=== PATIENT | male | born 1950 | race Caucasian/White ===

== ENCOUNTER → 2018-04-06 | Outpatient (CLI) | payer MEDICARE, OTHER ==
--- NOTE | 2018-04-06 11:33 | RAD ---
EXAM: Right lower extremity venous Doppler sonogram. HISTORY: Swelling and pain. TECHNIQUE: Garcia scale and color Doppler sonographic evaluation of the right lower extremity veins with spectral waveform analysis was performed. FINDINGS: There is normal color flow, normal compressibility and there are normal spectral waveforms in the common femoral, superficial femoral, popliteal, posterior tibial and greater saphenous veins. There is a hematoma within the medial calf soft tissues measuring 5.7 x 4.5 x 0.9 cm per IMPRESSION: 1. No Doppler evidence of lower extremity deep venous thrombosis. 2. Medial right calf soft tissue hematoma measuring 5.7 cm. Electronically signed by: Vale Lake MD (04/06/2018 11:29 AM) [facility]
== END | disposition home or self-care (01) ==
LOC: US 10:30
PROVIDERS: ATTEND Physician Assistant
DX: M79.81 Nontraumatic hematoma of soft tissue (principal)
CPT/HCPCS: 93971

== ENCOUNTER 2021-05-19 10:50 | Emergency (ER) | payer MEDICARE, OTHER ==
[~2021-05-19] VITALS: Ht 175.3 cm; Wt 90.1 kg
[2021-05-19] MEDS ORDERED: DEXAMETHASONE SOD PHOS 10 MG/ML VIAL. IV ONE (11:30)
[2021-05-19 11:58] LABS: CALCIUM 11.4 mg/dL (8.5-10.1); CREATININE 2.6 mg/dL (0.7-1.3); GFR 24.5; POTASSIUM 4.2 mmol/L (3.5-5.1)
[2021-05-19 12:01] LABS: BASO % 0 % (0-3); EOS % 0 % (0-3); HEMATOCRIT 46.5 % (39.0-53.0); HEMOGLOBIN 15.6 g/dL (13.0-17.5); LYMPH # 0.7 x10^3/uL (1.0-4.8); LYMPH % 3 % (24-48); MEAN CORPUSCULAR HEMOGLOBIN 30 pg (25-35); MEAN CORPUSCULAR HGB CONC 34 g/dL (31-37); MEAN CORPUSCULAR VOLUME 90 fL (79-100); MONO # 2.7 x10^3/uL (0.0-1.1); MONO % 10 % (0-9); NEUT # 24.6 x10^3uL (1.8-7.7); NEUT % 88 % (31-73); PLATELET COUNT 325 x10^3/uL (140-400); RED BLOOD COUNT 5.18 x10^6/uL (4.30-5.70); RED CELL DISTRIBUTION WIDTH 14.9 % (11.5-14.5); WHITE BLOOD COUNT 28.1 x10^3/uL (4.0-11.0)
--- NOTE | 2021-05-19 12:07 | PHYS DOC ---
Past History Past Medical History: A-Fib, COPD, Hypertension (ALEXUS STRAUSS PUBLIC HEALTH NUTRITIONIST) Adult General Chief Complaint Chief Complaint: MULTIPLE COMPLAINTS HPI HPI Patient is a 71-year-old male patient with history of COPD, hypertension, who presents to the ED today with multiple complaints. Patient is complaining of having from that began on Thursday 3 days ago. Patient states symptoms are worse on exertion. He states he has tried using his breathing treatments at home with minimal relief. Patient denies any fever. He also reports coughing. Patient is also complaining of his abdomen being distended specifically on the left side, he states he noted this distention since Thursday. Reports mild pain to the LUQ and RLQ with nausea, and vomiting yesterday. Patient is also complaining of a mass in his right groin that he noted this morning. Denies any injuries. (ALEXUS STRAUSS PUBLIC HEALTH NUTRITIONIST) Review of Systems Review of Systems Constitutional: Denies fever or chills [] Eyes: Denies change in visual acuity, redness, or eye pain [] HENT: Denies nasal congestion or sore throat [] Respiratory: Reports cough and shortness of breath [] Cardiovascular: No additional information not addressed in HPI [] GI: reports abdominal distention, and groin mass, denies abdominal pain, nausea, vomiting, bloody stools or diarrhea [] : Denies dysuria or hematuria [] Musculoskeletal: Denies back pain or joint pain [] Integument: Denies rash or skin lesions [] Neurologic: Denies headache, focal weakness or sensory changes [] All other systems were reviewed and found to be within normal limits, except as documented in this note. (ALEXUS STRAUSS PUBLIC HEALTH NUTRITIONIST) Current Medications Current Medications Current Medications Medications (Trade) Dose Ordered Sig/Jie Start Time Stop Time Status Last Admin Dose Admin Dexamethasone Sodium Phosphate (Decadron) 10 mg 1X ONCE 05/19/21 11:30 05/19/21 11:31 UNV Sodium Chloride (Normal Saline Flush) 10 ml QSHIFT PRN 05/19/21 11:30 UNV (ALEXUS STRAUSS PUBLIC HEALTH NUTRITIONIST) Physical Exam Physical Exam Constitutional: Well developed, well nourished, no acute distress, non-toxic appearance. [] HENT: Normocephalic, atraumatic, bilateral external ears normal, oropharynx moist, no oral exudates, nose normal. [] Eyes: PERRLA, EOMI, conjunctiva normal, no discharge. [] Neck: Normal range of motion, no tenderness, supple, no stridor. [] Cardiovascular:Heart rate regular rhythm, no murmur [] Lungs & Thorax: Diminished breath sounds Abdomen: Rounded abdomen distended abdomen with tenderness to the LUQ. Bowel sounds normal, soft, no pulsatile masses. [] Large right inguinal hernia noted. Unable to reduce it Skin: Warm, dry, no erythema, no rash. [] Back: No tenderness, no CVA tenderness. [] Extremities: No tenderness, no cyanosis, no clubbing, ROM intact, no edema. [] Neurologic: Alert and oriented X 3, normal motor function, normal sensory function, no focal deficits noted. [] Psychologic: Affect normal, judgement normal, mood normal. [] (ALEXUS STRAUSS APRN) Current Patient Data Lab Results Laboratory Tests Test 05/19/21 11:22 White Blood Count 28.1 x10^3/uL (4.0-11.0) H Red Blood Count 5.18 x10^6/uL (4.30-5.70) Hemoglobin 15.6 g/dL (13.0-17.5) Hematocrit 46.5 % (39.0-53.0) Mean Corpuscular Volume 90 fL (79-100) Mean Corpuscular Hemoglobin 30 pg (25-35) Mean Corpuscular Hemoglobin Concent 34 g/dL (31-37) Red Cell Distribution Width 14.9 % (11.5-14.5) H Platelet Count 325 x10^3/uL (140-400) Neutrophils (%) (Auto) 88 % (31-73) H Lymphocytes (%) (Auto) 3 % (24-48) L Monocytes (%) (Auto) 10 % (0-9) H Eosinophils (%) (Auto) 0 % (0-3) Basophils (%) (Auto) 0 % (0-3) Neutrophils # (Auto) 24.6 x10^3uL (1.8-7.7) H Lymphocytes # (Auto) 0.7 x10^3/uL (1.0-4.8) L Monocytes # (Auto) 2.7 x10^3/uL (0.0-1.1) H Eosinophils # (Auto) 0.0 x10^3/uL (0.0-0.7) Basophils # (Auto) 0.0 x10^3/uL (0.0-0.2) Platelet Estimate Pending (ALEXUS STRAUSS PUBLIC HEALTH NUTRITIONIST) EKG EKG [address] Christine sinus tachycardia HR 116 no STEMI[] (ALEXUS STRAUSS PUBLIC HEALTH NUTRITIONIST) Radiology/Procedures Radiology/Procedures PROCEDURE: PORTABLE CHEST 1V EXAM: Chest, single view. HISTORY: Cough. COMPARISON: None. FINDINGS: A frontal view of the chest is obtained. There is emphysema with suspected bilateral infrahilar pleural parenchymal scarring. There is no consolidation, pleural effusion or pneumothorax. There is cardiomegaly. There is incidental severe bilateral glenohumeral joint osteoarthritis. IMPRESSION: Emphysema with bilateral lower lobe atelectasis or pleural parenchymal scarring. Electronically signed by: Vale Meehan MD (05/19/2021 12:39 PM) [id number] DICTATED AND SIGNED BY: VALE MEEHAN MD DATE: 05/19/21 1238 CC: KRISTIN BRICENO MD; ALEXUS STRAUSS PUBLIC HEALTH NUTRITIONIST ~MTH0 0 []PROCEDURE: CT ABDOMEN PELVIS WO CONTRAST EXAM: CT ABDOMEN/PELVIS WITHOUT CONTRAST. HISTORY: Abdominal distention, right inguinal hernia. TECHNIQUE: Computed tomography of the abdomen and pelvis was performed without intravenous contrast. One or more of the following individualized dose reduction techniques were utilized for this examination: 1. Automated exposure control. 2. Adjustment of the mA and/or kV according to patient size. 3. Use of iterative reconstruction technique. COMPARISON: None. FINDINGS: Lung windows through the visualized portions of the bases reveal moderate centrilobular emphysema in the bases. The distal esophagus is fluid- filled consistent with reflux. Bone windows reveal no suspicious lesions. 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 The liver, gallbladder, spleen, pancreas, and adrenal glands are unremarkable. Multiple bilateral renal cysts appear benign and measure up to 3 cm on the right. A moderate right inguinal hernia contains a loop of distal jejunum. The included portion demonstrate wall thickening consistent with edema. This results in small bowel obstruction. The stomach is very dilated. A moderate left inguinal hernia contains a segment of the sigmoid colon without evidence of colonic obstruction. IMPRESSION: 1. Small bowel obstruction secondary to a loop of distal jejunum included in the moderate right inguinal hernia. Wall thickening of the included loop is consistent with vascular compromise. 2. A moderate left inguinal hernia contains a nonobstructed segment of the sigmoid colon. Electronically signed by: Griffin Carver MD (05/19/2021 12:48 PM) [facility] DICTATED AND SIGNED BY: ALAN CARVER MD DATE: 05/19/21 9575 CC: KRISTIN BRICENO MD; ALEXUS STRAUSS APRN ~MTH0 0 (ALEXUS STRAUSS APRN) Heart Score C/O Chest Pain: N/A Risk Factors: Risk Factors: DM, Current or recent (<one month) smoker, HTN, HLP, family history of CAD, obesity. Risk Scores: Risk Factors: DM, Current or recent (<one month) smoker, HTN, HLP, family history of CAD, obesity. (ALEXUS STRAUSS APRN) Course & Med Decision Making Course & Med Decision Making Pertinent Labs and Imaging studies reviewed. (See chart for details) This is a 71-year-old male patient with history of COPD presented today complaining of cough and shortness of breath since Thursday. Patient is also complaining of a mass on the right groin which was noted to be an inguinal hernia, He is also complaining of abdominal distention since Thursday Vitals temperature 98.4, heart rate 113, rest 6 with 2.5 L of oxygen, blood pressure 132/77, 96% CBC with a WBC of 28.1 and a left shift, CMP with a creatinine of 2.6, BUN of 39 , patient denies any history of kidney disease. CT of the abdomen and pelvis was noted small bowel obstruction secondary to a l oop of distal jejunum included in the moderate right inguinal hernia. Wall thickening of the included loop is consistent with vascular compromise. A moderate left inguinal hernia contains a nonobstructed segment of the sigmoid colon. I spoke to Dr. Pérez general surgeon, who requested we reduce the hernia I attempted to reduce patient's hernia, unsuccessfully, Dr. Christine notified. Spoke with Dr. Elise who accepted patient for admission IV fluids started Dr. Robison and I reduced the hernia Patient waiting for a bed at [facility] (ALEXUS STRAUSS APRN) Course & Med Decision Making Agree with TROLLEY [employer] MECH[employer]IC's work-up and disposition (CHINTAN ROBISON MD) Dragon Disclaimer Dragon Disclaimer This electronic medical record was generated, in whole or in part, using a voice recognition dictation system. (ALEXUS STRAUSS PUBLIC HEALTH NUTRITIONIST) Date and Time of Assessment Date: May 19, 2021 Time: 15:30 (ALEXUS STRAUSS PUBLIC HEALTH NUTRITIONIST) Vital Signs Vital Signs Vital Signs Date Time Temp Pulse Resp B/P (MAP) Pulse Ox O2 Delivery O2 Flow Rate FiO2 05/19/21 15:20 83 20 127/76 (93) 96 Nasal Cannula 2.5 05/19/21 10:50 98.4 (ALEXUS STRAUSS M PUBLIC HEALTH NUTRITIONIST) Respirations Respiratory Effort: Non-Labored Respiratory Pattern: Normal (ALEXUS STRAUSS M PUBLIC HEALTH NUTRITIONIST) Cardiovascular Pulse Rhythm: Regular HEART: Nml rate, reg. rhythm (ALEXUS STRAUSS M PUBLIC HEALTH NUTRITIONIST) Lung Sounds Breath Sounds: Clear (ALEXUS STRAUSS M PUBLIC HEALTH NUTRITIONIST) Capillary Refill Capillary Refill: Rt Hand > 3 seconds (ALEXUS STRAUSS M PUBLIC HEALTH NUTRITIONIST) Peripheral Pulse Pulse Location: Monitor Pulse Strength: Normal (2+) (ALEXUS STRAUSS M PUBLIC HEALTH NUTRITIONIST) Integumentary Skin: Warm Skin Moisture: Moist Skin Turgor: Normal Skin Color: warm Fingernail Color: WNL (ALEXUS STRAUSS PUBLIC HEALTH NUTRITIONIST) Departure Departure: Impression: Primary Impression: Incarcerated inguinal hernia Additional Impressions: Leukocytosis Sepsis ARF (acute renal failure) Shortness of breath SBO (small bowel obstruction) Disposition: 02 SHORT TERM HOSPITAL Condition: STABLE Referrals: KRISTIN BRICENO MD (PCP) Problem Qualifiers Additional Impressions: Leukocytosis Leukocytosis type: unspecified Qualified Codes: D72.829 - Elevated white blood cell count, unspecified Sepsis Sepsis type: sepsis due to unspecified organism Sepsis acute organ dysfunction status: unspecified Qualified Codes: A41.9 - Sepsis, unspecified organism ARF (acute renal failure) Acute renal failure type: unspecified Qualified Codes: N17.9 - Acute kidney failure, unspecified ALEXUS STRAUSS PUBLIC HEALTH NUTRITIONIST May 19, 2021 12:07 CHINTAN ROBISON MD May 20, 2021 00:01
[2021-05-19 12:12] LABS: ALBUMIN/GLOBULIN RATIO 0.9 (1.0-1.7); TOTAL PROTEIN 8.5 g/dL (6.4-8.2)
--- NOTE | 2021-05-19 12:37 | EKG ---
[address] [address] Test Date: 2021-05-19 Test Time: 11:34:45 Pat Name: TOMY PRUITT Department: Room: Gender: M Technology Solutions Architect: ANTHONY : [id number] Requested By: ALEXUS STRAUSS Order Number: [id number] Reading MD: Christophe Alexandra Measurements Intervals Devine Rate: 116 P: KS: QRS: 80 QRSD: 84 T: -23 QT: 292 QTc: 411 Interpretive Statements ATRIAL F[address] & T ABNORMALITY, CONSIDER INFERIOR ISCHEMIA OR LEFT VENTRICULAR STRAIN ABNORMAL ECG RI6.02 No previous ECG available for comparison Electronically Signed On 05-19-2021 12:37:56 CDT by Christophe Alexandra
--- NOTE | 2021-05-19 12:41 | RAD ---
EXAM: Chest, single view. HISTORY: Cough. COMPARISON: None. FINDINGS: A frontal view of the chest is obtained. There is emphysema with suspected bilateral infrah ilar pleural parenchymal scarring. There is no consolidation, pleural effusion or pneumothorax. There is cardiomegaly. There is incidental severe bilateral glenohumeral joint osteoarthritis. IMPRESSION: Emphysema with bilateral lower lobe atelectasis or pleural parenchymal scarring. Electronically signed by: Vale Lake MD (05/19/2021 12:39 PM) [id number]
--- NOTE | 2021-05-19 12:51 | RAD ---
EXAM: CT ABDOMEN/PELVIS WITHOUT CONTRAST. HISTORY: Abdominal distention, right inguinal hernia. TECHNIQUE: Computed tomography of the abdomen and pelvis was performed without intravenous contrast. One or more of the following individualized dose reduction techniques were utilized for this examinat ion: 1. Automated exposure control. 2. Adjustment of the mA and/or kV according to patient size. 3. Use of iterative reconstruction technique. COMPARISON: None. FINDINGS: Lung windows through the visualized portions of the bases reveal moderate centrilobular emp hysema in the bases. The distal esophagus is fluid-filled consistent with reflux. Bone windows reveal no suspicious lesions. 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 The liver, gallbladder, spleen, pancreas, and adrenal glands are unremarkable. Multiple bilateral gris al cysts appear benign and measure up to 3 cm on the right. A moderate right inguinal hernia contains a loop of distal jejunum. The included portion demonstrate wall thickening consistent with edema. This results in small bowel obstruction. The stomach is very d ilated. A moderate left inguinal hernia contains a segment of the sigmoid colon without evidence of colonic o bstruction. IMPRESSION: 1. Small bowel obstruction secondary to a loop of distal jejunum included in the moderate right ingui nal hernia. Wall thickening of the included loop is consistent with vascular compromise. 2. A moderate left inguinal hernia contains a nonobstructed segment of the sigmoid colon. Electronically signed by: Griffin Carver MD (05/19/2021 12:48 PM) [facility]
[2021-05-19] MEDS ORDERED: IV NORMAL SALINE 1,000ML 1,000 ML IV ONE ×3 (13:30→16:30)
[2021-05-19] MEDS ORDERED: MORPHINE SULFATE 4 MG/ML DISP.SYRIN. IV ONE (13:30)
[2021-05-19 13:48] LABS: INFLUENZA A PATIENT NEGATIVE (NEGATIVE); INFLUENZA B PATIENT NEGATIVE (NEGATIVE)
[2021-05-19] MEDS: 0.9 % SODIUM CHLORIDE 10 ML DISP.SYRIN. IV PRN ×2 (15:08→19:35)
[2021-05-19 15:13] LABS: % BANDS 1 % (0-9); % LYMPHS 2 % (24-48); % MONOS 8 % (0-10); % SEGS 89 % (35-66); PLT ESTIMATE ADEQUATE (ADEQUATE)
[2021-05-19 19:50] LABS: BILIRUBIN,URINE MOD (NEG); CLARITY,URINE HAZY; COLOR,URINE YELLOW; GLUCOSE,URINE NEG (NEG)
[2021-05-19 19:51] LABS: BACTERIA,URINE FEW /HPF (0-FEW); HYALINE CASTS, URINE FEW /HPF; NITRITE,URINE NEG (NEG); SQUAMOUS EPITHELIAL CELL,UR FEW /LPF; UROBILINOGEN,URINE 0.2 mg/dL (0.2 mg/dL)
[2021-05-20] MEDS ORDERED: IV NORMAL SALINE 1,000ML 1,000 ML IV ONE (08:45)
[2021-05-20] MEDS ORDERED: cefTRIAXone SODIUM 1 GM VIAL ONE (09:05)
[2021-05-20] MEDS ORDERED: IV NORMAL SALINE 50ML 50 ML ONE (09:05)
[2021-05-20 10:13] LABS: BASO # 0.1 x10^3/uL (0.0-0.2); BASO % 0 % (0-3); EOS % 0 % (0-3); HEMATOCRIT 45.8 % (39.0-53.0); HEMOGLOBIN 14.8 g/dL (13.0-17.5); LYMPH # 0.7 x10^3/uL (1.0-4.8); LYMPH % 3 % (24-48); MEAN CORPUSCULAR HEMOGLOBIN 29 pg (25-35); MEAN CORPUSCULAR HGB CONC 32 g/dL (31-37); MEAN CORPUSCULAR VOLUME 91 fL (79-100); MONO # 3.3 x10^3/uL (0.0-1.1); MONO % 14 % (0-9); NEUT # 20.3 x10^3uL (1.8-7.7); NEUT % 83 % (31-73); PLATELET COUNT 259 x10^3/uL (140-400); RED BLOOD COUNT 5.02 x10^6/uL (4.30-5.70); WHITE BLOOD COUNT 24.4 x10^3/uL (4.0-11.0)
[2021-05-20 10:24] LABS: CALCIUM 11.3 mg/dL (8.5-10.1); CREATININE 2.8 mg/dL (0.7-1.3); GFR 22.5; POTASSIUM 4.5 mmol/L (3.5-5.1)
[2021-05-20 10:33] LABS: ALBUMIN 3.1 g/dL (3.4-5.0); ALBUMIN/GLOBULIN RATIO 0.8 (1.0-1.7); TOTAL BILIRUBIN 0.7 mg/dL (0.2-1.0)
--- NOTE | 2021-05-20 11:07 | RAD ---
XR CHEST 1V History: Reason: confirm ngt / Spl. Instructions: / History: Technique: AP view of the lower chest and upper abdomen. Comparison: May 19, 2021 CT Findings: Interval placement enteric tube with tip projecting over the proximal stomach and side port within th e distal esophagus. Dilated loops of bowel within the imaged upper abdomen. Pulmonary emphysema. Impression: 1. Interval placement enteric tube with tip projecting over the proximal stomach and side port withi n the distal esophagus. Consider advancement. Electronically signed by: Nikita Estrada DO (05/20/2021 11:04 AM) [id number]
[2021-05-20 11:11] VITALS: BP 124/71
--- NOTE | 2021-05-20 11:58 | RAD ---
XR CHEST 1V History: Confirm NG tube. Comparison: 05/20/2021. CT abdomen pelvis 05/19/2021 Technique: Portable AP lower chest/upper abdomen radiograph. FINDINGS/ IMPRESSION: Tubes and lines: Interval advancement of nasogastric tube now with proximal side-port and distal tip projecting in the left upper quadrant over the gastric bubble. Lungs and pleura: No focal airspace consolidation or pleural effusion. Cardiac silhouette and pulmonary vasculature: Unchanged. Osseous structures and upper abdomen: Prominent upper abdominal dilated small bowel loops similar to comparison. Electronically signed by: Ghassan Davalos MD (05/20/2021 11:55 AM) [id number]
== END 2021-05-20 12:13 | disposition short-term general hospital (02) ==
LOC: ER 10:50
DX: A41.9 Sepsis, unspecified organism (principal); R65.21 Severe sepsis with septic shock; N17.9 Acute kidney failure, unspecified; K40.30 Unilateral inguinal hernia, with obstruction, without gangrene, not specified as recurrent; D72.829 Elevated white blood cell count, unspecified; K56.609 Unspecified intestinal obstruction, unspecified as to partial versus complete obstruction; I48.91 Unspecified atrial fibrillation; J44.9 Chronic obstructive pulmonary disease, unspecified; I10 Essential (primary) hypertension; Z20.822 Contact with and (suspected) exposure to COVID-19
CPT/HCPCS: 36415; 71045; 74176; 80053; 81001; 82553; 83605; 83735; 83880; 85007; 85025; 85610; 85730; 87040; 87086; 87426; 87804; 93005; 96361; 96365; 96367; 96375; 99285; J0696; J1100; J2270; J3010; J3490; J7030; U0003

== ENCOUNTER → 2021-06-24 | Outpatient (CLI) | payer MEDICARE, OTHER ==
[2021-06-24 13:06] LABS: BASO % 1 % (0-3); EOS % 1 % (0-3); HEMATOCRIT 30.1 % (39.0-53.0); HEMOGLOBIN 9.6 g/dL (13.0-17.5); LYMPH # 0.9 x10^3/uL (1.0-4.8); LYMPH % 13 % (24-48); MEAN CORPUSCULAR HEMOGLOBIN 28 pg (25-35); MEAN CORPUSCULAR HGB CONC 32 g/dL (31-37); MEAN CORPUSCULAR VOLUME 89 fL (79-100); MONO # 0.6 x10^3/uL (0.0-1.1); MONO % 9 % (0-9); NEUT # 5.3 x10^3uL (1.8-7.7); NEUT % 77 % (31-73); PLATELET COUNT 216 x10^3/uL (140-400); RED BLOOD COUNT 3.38 x10^6/uL (4.30-5.70); RED CELL DISTRIBUTION WIDTH 17.3 % (11.5-14.5); WHITE BLOOD COUNT 6.9 x10^3/uL (4.0-11.0)
[2021-06-24 13:21] LABS: ALBUMIN 2.5 g/dL (3.4-5.0); CALCIUM 8.3 mg/dL (8.5-10.1); CREATININE 1.3 mg/dL (0.7-1.3); GFR 54.6; PHOSPHORUS 3.2 mg/dL (2.6-4.7); POTASSIUM 4.4 mmol/L (3.5-5.1)
[2021-06-25 16:56] LABS: FREE T4 1.39 ng/dL (0.76-1.46); THYROID STIM HORMONE (TSH) 1.221 uIU/mL (0.358-3.740)
== END ==
LOC: LAB 12:25
PROVIDERS: ATTEND Family Medicine
DX: I48.0 Paroxysmal atrial fibrillation (principal); I82.4Z2 Acute embolism and thrombosis of unspecified deep veins of left distal lower extremity; E61.1 Iron deficiency; N18.2 Chronic kidney disease, stage 2 (mild); Z79.01 Long term (current) use of anticoagulants
CPT/HCPCS: 36415; 80069; 83540; 84439; 84443; 85025; 85610; 85730